=== PATIENT | female | born 1965 | race African-American/Black ===

== ENCOUNTER 2016-12-15 15:42 | Emergency (ER) | payer BC ==
[~2016-12-15] VITALS: Ht 165.1 cm; Wt 77.0 kg
[2016-12-15 15:43] VITALS: BP 156/98; PULSE 87; RESP 17; TEMP 98.2; O2SAT 98
--- NOTE | 2016-12-15 16:02 | PD ---
HPI . possible bug bites Chief Complaint: Skin Problem Time Seen by Provider: 16:02 Travel History International Travel<30 days: No Contact w/Intl Traveler<30days: No Traveled to known affect area: No History of Present Illness HPI 51-year-old female here with complaints of possible bug bites. Patient is staying at a hotel and noticed this morning that she had bug bite andrew on her entire arm and hand. He tells me they're very itchy. Her daughter is here with similar complaints. PFSH Past Medical History Cardiovascular Problems: Yes (hypertension) Past Surgical History Hysterectomy: Yes Social History Tobacco Use: No Allergies-Medications (Allergen,Severity, Reaction): Coded Allergies: Penicillin (Verified Allergy, Severe, HIVES, 12/15/16) Reported Meds & Prescriptions Reported Meds & Active Scripts Active Reported Synthroid (Levothyroxine Sodium) 25 Mcg Tab 25 Mcg PO DAILY Losartan (Losartan Potassium) 25 Mg Tab 12.5 Mg PO DAILY Review of Systems General / Constitutional: No: Fever Eyes: No: Visual changes HENT: No: Headaches Cardiovascular: No: Chest Pain or Discomfort Respiratory: No: Shortness of Breath Gastrointestinal: No: Abdominal Pain Genitourinary: No: Dysuria Musculoskeletal: No: Pain Skin: Positive Itching, Positive Lesions, No Rash Neurologic: No: Weakness Psychiatric: No: Depression Endocrine: No: Polydipsia Hematologic/Lymphatic: No: Easy Bruising Physical Exam Narrative GENERAL: AAO x 3, no acute distress, Well-nourished, well-developed patient. SKIN: Warm and dry. No visible rashes or bruising. lesions scattered over the arms and hands that appear to be bedbug bites in nature. It is erythematous slightly raised HEAD: Normocephalic and atraumatic. EYES: No scleral icterus. No injection or drainage. EOM intact, PERRLA ENT: No nasal drainage noted. Mucous membranes pink. Airway patent. NECK: Supple, trachea midline. No JVD. CARDIOVASCULAR: Regular rate and rhythm without murmurs, gallops, or rubs. RESPIRATORY: Breath sounds equal bilaterally. No accessory muscle use. No rhonchi or rales. GASTROINTESTINAL: Abdomen soft, non-tender, nondistended. EXTREMITIES: No cyanosis or edema. BACK: Nontender without obvious deformity. No CVA tenderness. PSYCH: AAO x 3, normal affect. Data Data Last Documented VS Vital Signs Date Time Temp Pulse Resp B/P Pulse Ox O2 Delivery O2 Flow Rate FiO2 12/15/16 15:43 98.2 87 17 156/98 98 MDM Medical Decision Making Medical Screen Exam Complete: Yes Emergency Medical Condition: Yes Medical Record Reviewed: Yes Differential Diagnosis bed bug, scabies, less likely cellulitis Narrative Course 51-year-old female here with complaints of possible bug bites. Patient is staying at a hotel and noticed this morning that she had bug bite andrew on her entire arm and hand. He tells me they're very itchy. Her daughter is here with similar complaints. Patient seen and examined. She appears to have bedbug bites. I explained that there is not much that I can do. I recommend [id number] hydrocortisone, calamine or antihistamines. I also recommend leaving the hotel. I discussed cleaning their personal belongings. Patient verbalized understanding of instructions, questions were answered, and thanked me for their care. I advised them if their condition worsens, please return to the nearest emergency room for further care. Diagnosis Primary Impression: Bed bug bite Qualified Code: W57.XXXA - Bed bug bite, initial encounter Patient Instructions: Bed Bugs (ED), General Instructions Additional Instructions: Please return to emergency department if your symptoms return or worsen. Follow up with your primary care provider. You can use [id number] hydrocortisone, calamine lotion and antihistamine such as Benadryl. Taper And Floater personal belongings as we discussed. Med/Other Pt SpecificInfo: No Meds Exist/No RX given Disposition: 01 DISCHARGE HOME Condition: Stable Aga Real Dec 15, 2016 16:02
[2016-12-15] MEDS ORDERED: SYNT25TA PO (16:13)
[2016-12-15] MEDS ORDERED: LOSA25TA PO (16:13)
== END 2016-12-15 16:39 | disposition home or self-care (01) ==
LOC: NEPK 15:42
DX: S60.569A Insect bite (nonvenomous) of unspecified hand, initial encounter (principal); I10 Essential (primary) hypertension; W57.XXXA Bitten or stung by nonvenomous insect and other nonvenomous arthropods, initial encounter; Y92.59 Other trade areas as the place of occurrence of the external cause
CPT/HCPCS: 99281